=== PATIENT | female | born 1990 | race Caucasian/White ===

== ENCOUNTER 2018-05-15 16:07 | Emergency (ER) | payer SELFPAY ==
[2018-05-15 16:14] VITALS: BP 145/94
--- NOTE | 2018-05-15 16:25 | ER Document Report ---
ED Medical Screen (RME) - General Chief Complaint: Psych Problem Stated Complaint: PSYCH EVAL Time Seen by Provider: 05/15/18 16:17 Notes: 27 years old female brought in by mother claiming that she has run out of her psych medications because they were moving back and forth from here to [place]. Requesting me to refill clonazepam, lithium, Thorazine. Currently not exhibiting any psychotic symptoms. Denies any suicidal or homicidal ideation. TRAVEL OUTSIDE OF THE [place] IN LAST 30 DAYS: No - Related Data Allergies/Adverse Reactions: aripiprazole [From Abilify] Allergy (Verified 05/15/18 16:13) benztropine [From Cogentin] Allergy (Verified 05/15/18 16:14) haloperidol [From Haldol] Allergy (Verified 05/15/18 16:14) hydroxyzine [From Vistaril] Allergy (Verified 05/15/18 16:13) olanzapine [From Zyprexa] Allergy (Verified 05/15/18 16:13) quetiapine [From Seroquel] Allergy (Verified 05/15/18 16:13) latex Adverse Reaction (Verified 05/15/18 16:08) Pruritis Past Medical History Psychiatric Medical History: Reports: Hx Anxiety, Hx Bipolar Disorder, Hx Depression - Immunizations Hx Diphtheria, Pertussis, Tetanus Vaccination: Yes Physical Exam - Vital signs Vitals: Temp Pulse Resp BP Pulse Ox 98.7 F 102 H 18 145/94 H 100 05/15/18 16:12 05/15/18 16:12 05/15/18 16:12 05/15/18 16:12 05/15/18 16:12 Course - Vital Signs Vital signs: Temp Pulse Resp BP Pulse Ox 98.7 F 102 H 18 145/94 H 100 05/15/18 16:12 05/15/18 16:12 05/15/18 16:12 05/15/18 16:12 05/15/18 16:12
--- NOTE | 2018-05-15 17:52 | ER Document Report ---
ED Psych Disorder / Suicide - General Chief Complaint: Psych Problem Stated Complaint: PSYCH EVAL Time Seen by Provider: 05/15/18 16:17 Notes: Patient is here for medication refills and referral to a local psychiatrist [place]. She has a diagnosis of schizoaffective disorder and bipolar disorder. Has been taking multiple medications, her primary psychiatric ones are lithium 300 mg 3 times a day, Thorazine 200 mg 4 times a day, and clonazepam 1 mg 3 times a day. She is here with her mother. Mother indicates that the patient has an appointment to be seen by a primary care physician in the community next Friday, the . That is 5 days from now. Patient is not expressing any suicidal thoughts or thoughts of harming herself or anyone else. She does have problems with panic attacks and PTSD. Patient is here after the time for departure for the mental health workers and therefore there is no mental health assessment available, except for my assessment. Patient is apparently stable and not a risk of danger to herself or others. I have advised the patient and her mother that I do not write long- term prescriptions for any medications, in particular psychiatric medications. I told them that I would write her a prescription for the 3 primary medications that she needs for the next 5 days to last her until she has that appointment on the . They seem to be agreeable with that plan. I did tell them that there will be mental health personnel on duty in the emergency department every morning wish to return to be assessed more fully or to get any further assistance referral for a local therapist. They seem to be agreeable with this plan. TRAVEL OUTSIDE OF THE [place] IN LAST 30 DAYS: No - Related Data Allergies/Adverse Reactions: aripiprazole [From Abilify] Allergy (Verified 05/15/18 16:13) benztropine [From Cogentin] Allergy (Verified 05/15/18 16:14) haloperidol [From Haldol] Allergy (Verified 05/15/18 16:14) hydroxyzine [From Vistaril] Allergy (Verified 05/15/18 16:13) olanzapine [From Zyprexa] Allergy (Verified 05/15/18 16:13) quetiapine [From Seroquel] Allergy (Verified 05/15/18 16:13) latex Adverse Reaction (Verified 05/15/18 16:08) Pruritis Past Medical History - Social History Smoking Status: Current Every Day Smoker Chew tobacco use (# tins/day): No Frequency of alcohol use: None Drug Abuse: None Family History: Reviewed & Not Pertinent Patient has suicidal ideation: No Patient has homicidal ideation: No Psychiatric Medical History: Reports: Hx Anxiety, Hx Bipolar Disorder, Hx Depression, Hx Post Traumatic Stress Disorder, Hx Schizoaffective Disorder - Immunizations Hx Diphtheria, Pertussis, Tetanus Vaccination: Yes Review of Systems - Review of Systems Notes: REVIEW OF SYSTEMS: CONSTITUTIONAL : Denies fever. EENT: Denies eye, ear, nose or mouth or throat pain or other symptoms. CARDIOVASCULAR: Denies chest pain. RESPIRATORY: Denies cough, chest congestion, or shortness of breath. GASTROINTESTINAL: Denies abdominal pain or nausea, vomiting, or diarrhea. GENITOURINARY: Denies difficulty or painful urinating, urinary frequency, blood in urine. MUSCULOSKELETAL: Denies back or neck pain. Denies joint pain or swelling. SKIN: Denies rash or skin lesions. NEUROLOGICAL: Denies LOC or altered mental status. Denies headache. Denies sensory loss or motor deficits. ALL OTHER SYSTEMS REVIEWED AND NEGATIVE. Physical Exam - Vital signs Vitals: Temp Pulse Resp BP Pulse Ox 98.7 F 102 H 18 145/94 H 100 05/15/18 16:12 05/15/18 16:12 05/15/18 16:12 05/15/18 16:12 05/15/18 16:12 Interpretation: Normal - Notes Notes: PHYSICAL EXAMINATION: GENERAL: Well-appearing, in no acute distress. Quiet and withdrawn. Cooperative. Does not appear depressed. HEAD: Atraumatic, normocephalic. EYES: Pupils equal round and reactive to light, extraocular movements intact. ENT: oropharynx clear without exudates. Moist mucous membranes. NECK: Normal range of motion, supple. LUNGS: Breath sounds clear and equal bilaterally. HEART: Regular rate and rhythm without murmurs. ABDOMEN: Soft, nontender. No guarding or rebound. No masses. BACK: No tenderness throughout entire back. EXTREMITIES: Normal range of motion without pain. NEUROLOGICAL: Normal speech, normal gait. Normal sensory, motor, and reflex exams. Awake, alert, and oriented x3. Cranial nerves normal. PSYCH: Quiet and somewhat withdrawn, but does not appear depressed and is not suicidal. SKIN: Warm, dry, no rashes. Course - Re-evaluation Re-evalutation: 05/15/18 19:55 Prescriptions were written for the patient's lithium, Thorazine, and clonazepam. They are going to defer getting any lab work done at this time and I do not think any is indicated. They were advised to return at any time during the daytime hours for more mental health assessment and assistance. Return at any time for emergency evaluation. - Vital Signs Vital signs: Temp Pulse Resp BP Pulse Ox 98.7 F 102 H 18 145/94 H 100 05/15/18 16:12 05/15/18 16:12 05/15/18 16:12 05/15/18 16:12 05/15/18 16:12 Discharge - Discharge Clinical Impression: Bipolar 1 disorder, Schizoaffective disorder, unspecified condition, Anxiety Condition: Stable Disposition: HOME, SELF-CARE Additional Instructions: Bipolar Disorder Bipolar disorder is also called manic-depressive disorder. Depression alternates with brain hyperactivity called carloz. Each phase lasts from several days to a few weeks. We don't know exactly what causes bipolar disorder , but it's treatable. During the "manic phase," you may feel elated and energetic. You may have racing thoughts, rapid speech, increased activity, and grandiose ideas. During this time, you may not realize how poor your judgement is. Inappropriate spending, drug abuse, excessive alcohol use, marriage problems, and irresponsible sexual behavior are common during the manic phase. During the "depressive phase," you might feel depressed, guilty, worthless , fatigued, and unable to concentrate. You might have thoughts of suicide. Good treatments are available for bipolar disorder. Chassell is a classic drug for bipolar disorder, and is still often useful. If the manic phase is very mild, an antidepressant alone can be prescribed. If the manic phase is very severe, an antipsychotic medicine (such as Haldol) may be needed. The treatment must be matched to your symptoms, so it's important to work closely with your psychiatric care provider. Contact your physician, the hospital emergency center, crisis line, or your counsellor if you are losing control or having self-destructive thoughts. Schizophrenia Schizophrenia is a chemical disorder that affects how the brain functions. The exact cause is unknown, but it tends to run in families. It is NOT caused by emotional trauma. Schizophrenia causes disordered thinking, including unusual beliefs and inability to "process" happenings around the patient. Patients with schizophrenia benefit greatly from medicine. These medicines are called antipsychotics. Never stop the medicine without the doctor 's approval. Counselling may help the patient deal with his disease. Schizophrenics require a very ordered environment. Stresses and sudden changes may bring out symptoms. Drugs and alcohol abuse may become problems. Contact the counsellor or crisis line if there are thoughts of suicide or of harming others, or if you become aware of unusual thoughts or beliefs Anxiety The physician feels that some of your health problems are being caused by anxiety. Anxiety affects your health in many ways. Anxiety alone can cause palpitations, sweats, chest pains, abdominal pains, shortness of breath, and headaches. It contributes to ulcer disease, high blood pressure, irritable bowel syndrome, and has been shown to cause flare-ups of many other diseases. Anxiety is not a simple disorder to treat. If the anxiety is due to recent life stresses, you may simply need time to "work through" the changes. If the anxiety is due to an underlying unhappiness with yourself or due to psychiatric disturbance, professional help will be needed. Your physician can refer you for further help if needed. Anti-anxiety medication is occasionally given if the stress is acute or if you are having trouble sleeping. Chronic or frequent use of these medications is not a good idea because the body becomes reliant on it, preventing you from dealing with life's normal stresses. FOLLOW-UP CARE: If you have been referred to a physician for follow-up care, call the physician s office for an appointment as you were instructed or within the next two days. If you experience worsening or a significant change in your symptoms, notify the physician immediately or return to the Emergency Department at any time for re-evaluation. Prescriptions: Chlorpromazine HCl [Chlorpromazine HCL 200 mg Tablet] 1 tab PO QID #20 tab Clonazepam 1 mg PO TID #15 tablet Chassell Carbonate 300 mg PO TID #15 tablet
== END 2018-05-15 18:00 | disposition home or self-care (01) ==
LOC: ER 16:07
DX: F41.9 Anxiety disorder, unspecified (principal); F25.0 Schizoaffective disorder, bipolar type; F17.210 Nicotine dependence, cigarettes, uncomplicated; Z91.040 Latex allergy status
CPT/HCPCS: 99283

== ENCOUNTER 2018-07-07 16:29 | Emergency (ER) | payer SELFPAY | END 2018-07-07 17:34 | disposition left against medical advice (07) | LOC: ER 16:29 | DX: Z53.21 Procedure and treatment not carried out due to patient leaving prior to being seen by health care provider (principal) ==

== ENCOUNTER 2018-07-08 14:06 | Emergency (ER) | payer SELFPAY ==
[2018-07-08 14:14] VITALS: BP 132/92
--- NOTE | 2018-07-08 15:17 | ER Document Report ---
ED Medical Screen (RME) - General Chief Complaint: Medication Refill Stated Complaint: MEDICATION REFILL Time Seen by Provider: 07/08/18 15:05 Notes: Patient is a 28-year-old female, with bipolar disorder, schizophrenia that presents to the emergency department for chief complaint of psychiatric evaluation and medication refills. Patient history mainly provided with the patient's mother, she has had psychiatric evaluation [facility], but they apparently were not prescribe her her medications, she was on Klonopin, and there was according to the patient's mother confusion between her twin sister's prescriptions, but they refused to prescribe her other medications as well, they have been trying to contact other places to have her evaluated to get her on her medications, which she was previously on lithium, Cogentin, and Haldol, but she has had multiple adverse reactions from several medications including Thorazine, that apparently caused splenomegaly, she is currently out of the medications, but has been taking Haldol and Cogentin that she had leftover, which seemingly has been stabilizing her mood, but she would be running out of the soon she has been taking it for approximately 3 weeks. Current suicidal or homicidal ideation ROS: Other than noted above, the 12 point review of systems was reviewed with the patient and were negative, all pertinent findings are included in the HPI. PHYSICAL EXAMINATION: Vital signs reviewed. GENERAL: Well-appearing, well-nourished and in no acute distress. HEAD: Atraumatic, normocephalic. EYES: Pupils equal round extraocular movements intact, conjunctiva are normal. ENT: Nares patent NECK: Normal range of motion CV: Heart regular rate and rhythm LUNGS: No respiratory distress Musculoskeletal: Normal range of motion NEUROLOGICAL: Normal speech PSYCH: Flat affect MDM: Patient seen and examined for rapid initial assessment. Vital signs reviewed. A comprehensive ED assessment and evaluation of the patient, analysis of test results and completion of the medical decision making process will be conducted by additional ED providers. *Note is created using voice recognition software and may contain spelling, syntax or grammatical errors. TRAVEL OUTSIDE OF THE [place] IN LAST 30 DAYS: No - Related Data Allergies/Adverse Reactions: aripiprazole [From Abilify] Allergy (Verified 05/15/18 16:13) benztropine [From Cogentin] Allergy (Verified 05/15/18 16:14) haloperidol [From Haldol] Allergy (Verified 05/15/18 16:14) hydroxyzine [From Vistaril] Allergy (Verified 05/15/18 16:13) olanzapine [From Zyprexa] Allergy (Verified 05/15/18 16:13) quetiapine [From Seroquel] Allergy (Verified 05/15/18 16:13) latex Adverse Reaction (Verified 05/15/18 16:08) Pruritis Past Medical History Renal/ Medical History: Denies: Hx Peritoneal Dialysis Psychiatric Medical History: Reports: Hx Anxiety, Hx Bipolar Disorder, Hx Depression, Hx Post Traumatic Stress Disorder, Hx Schizoaffective Disorder, Hx Schizophrenia - schizoaffective, ptsd - Immunizations Hx Diphtheria, Pertussis, Tetanus Vaccination: Yes Physical Exam - Vital signs Vitals: Temp Pulse Resp BP Pulse Ox 99.0 F 81 20 132/92 H 99 07/08/18 14:11 07/08/18 14:11 07/08/18 14:11 07/08/18 14:11 07/08/18 14:11 Course - Vital Signs Vital signs: Temp Pulse Resp BP Pulse Ox 99.0 F 81 20 132/92 H 99 07/08/18 14:11 07/08/18 14:11 07/08/18 14:11 07/08/18 14:11 07/08/18 14:11
[2018-07-08 16:05] LABS: ABSOLUTE MONOCYTES (AUTO) 0.3 10^3/uL (0.1-1.4); ABSOLUTE NEUT (AUTO) 2.5 10^3/uL (1.7-8.2); BASOPHILS % (AUTO) 0.1 % (0-2); HEMATOCRIT 42.1 % (36.0-47.0); HEMOGLOBIN 14.5 g/dL (12.0-15.5); LYMPHOCYTES % (AUTO) 27.1 % (13-45); MEAN CORPUSCULAR HEMOGLOBIN 29.7 pg (27.0-33.4); MEAN CORPUSCULAR HGB CONC 34.4 g/dL (32.0-36.0); MEAN CORPUSCULAR VOLUME 86 fl (80-97); MONOCYTES % (AUTO) 6.7 % (3-13); PLATELET COUNT 167 10^3/uL (150-450); RED BLOOD COUNT 4.89 10^6/uL (3.72-5.28); RED CELL DISTRIBUTION WIDTH 12.4 % (11.5-14.0); SEGMENTED NEUTROPHILS % (AUTO) 66.1 % (42-78); TOTAL CELLS COUNTED % (AUTO) 100 %; WHITE BLOOD COUNT 3.8 10^3/uL (4.0-10.5)
[2018-07-08 16:12] LABS: APPEARANCE,URINE SLIGHTLY-CLOUDY; BILIRUBIN,URINE NEGATIVE (NEGATIVE); COLOR,URINE YELLOW; GLUCOSE, URINE NEGATIVE (NEGATIVE); KETONES,URINE NEGATIVE (NEGATIVE); LEUKOCYTE ESTERASE,URINE LARGE (NEGATIVE); NITRITE,URINE NEGATIVE (NEGATIVE); PROTEIN,URINE NEGATIVE (NEGATIVE); URINE SPECIFIC GRAVITY 1.011; UROBILINOGEN,URINE NEGATIVE mg/dL (<2.0)
[2018-07-08 16:26] LABS: URINE AMPHETAMINES SCREEN NEGATIVE; URINE BARBITURATES SCREEN NEGATIVE; URINE BENZODIAZEPINES SCREEN NEGATIVE; URINE COCAINE SCREEN NEGATIVE; URINE MARIJUANA (THC) SCREEN NEGATIVE; URINE METHADONE SCREEN NEGATIVE; URINE PHENCYCLIDINE SCREEN NEGATIVE
[2018-07-08 16:31] LABS: ALANINE AMINOTRANSFERASE 18 U/L (9-52); ALBUMIN 4.8 g/dL (3.5-5.0); ALKALINE PHOSPHATASE 49 U/L (38-126); ANION GAP 12 (5-19); ASPARTATE AMINO TRANSFERASE 22 U/L (14-36); BILIRUBIN,DIRECT 0.2 mg/dL (0.0-0.4); BILIRUBIN,TOTAL 0.5 mg/dL (0.2-1.3); BLOOD UREA NITROGEN 11 mg/dL (7-20); CALCIUM 10.1 mg/dL (8.4-10.2); CARBON DIOXIDE 27 mmol/L (22-30); CHLORIDE 106 mmol/L (98-107); GLUCOSE 81 mg/dL (75-110); POTASSIUM 4.5 mmol/L (3.6-5.0); TOTAL PROTEIN 7.9 g/dL (6.3-8.2)
[2018-07-08 16:34] LABS: ACETAMINOPHEN < 10 ug/mL (10-30); ALCOHOL < 10 mg/dL (NONE DETECTED); LITHIUM < 0.2 mEq/L (0.6-1.2); SALICYLATE < 1.0 mg/dL (2.0-20.0)
--- NOTE | 2018-07-08 19:51 | ER Document Report ---
ED Psych Disorder / Suicide - General Chief Complaint: Medication Refill Stated Complaint: MEDICATION REFILL Time Seen by Provider: 07/08/18 15:05 Notes: Patient with a history of bipolar disorder, and schizophrenia requesting medication refills. She is here with her mother. I have seen this patient and her mother on a previous visit when they were here expecting us to write for her chronic psychiatric medications. Currently, she is out of her medications. TRAVEL OUTSIDE OF THE [place] IN LAST 30 DAYS: No - Related Data Allergies/Adverse Reactions: aripiprazole [From Abilify] Allergy (Verified 05/15/18 16:13) benztropine [From Cogentin] Allergy (Verified 05/15/18 16:14) haloperidol [From Haldol] Allergy (Verified 05/15/18 16:14) hydroxyzine [From Vistaril] Allergy (Verified 05/15/18 16:13) olanzapine [From Zyprexa] Allergy (Verified 05/15/18 16:13) quetiapine [From Seroquel] Allergy (Verified 05/15/18 16:13) latex Adverse Reaction (Verified 05/15/18 16:08) Pruritis Past Medical History - Social History Smoking Status: Current Every Day Smoker Frequency of alcohol use: None Drug Abuse: None Family History: Reviewed & Not Pertinent Patient has suicidal ideation: No Patient has homicidal ideation: No Psychiatric Medical History: Reports: Hx Anxiety, Hx Bipolar Disorder, Hx Depression, Hx Post Traumatic Stress Disorder, Hx Schizoaffective Disorder, Hx Schizophrenia - schizoaffective, ptsd - Immunizations Hx Diphtheria, Pertussis, Tetanus Vaccination: Yes Review of Systems - Review of Systems Notes: CONSTITUTIONAL : Denies fever. CARDIOVASCULAR: Denies chest pain. RESPIRATORY: Denies cough, chest congestion, or shortness of breath. GASTROINTESTINAL: Denies abdominal pain or nausea, vomiting, or diarrhea. GENITOURINARY: Denies difficulty or painful urinating, urinary frequency, blood in urine. Physical Exam - Vital signs Vitals: Temp Pulse Resp BP Pulse Ox 99.0 F 81 20 132/92 H 99 07/08/18 14:11 07/08/18 14:11 07/08/18 14:11 07/08/18 14:11 07/08/18 14:11 Interpretation: Normal Notes: PHYSICAL EXAMINATION: GENERAL: Well-appearing, no acute distress. HEAD: Atraumatic, normocephalic. NECK: Normal range of motion, supple. LUNGS: Breath sounds clear and equal bilaterally. HEART: Regular rate and rhythm without murmurs heard. ABDOMEN: Soft, nontender. No guarding or rebound or masses felt. Course - Re-evaluation Re-evalutation: 07/08/18 19:50 Patient and mother were observed to leave the emergency department without being signed out. - Vital Signs Vital signs: Temp Pulse Resp BP Pulse Ox 99.0 F 81 20 132/92 H 99 07/08/18 14:11 07/08/18 14:11 07/08/18 14:11 07/08/18 14:11 07/08/18 14:11 - Laboratory Result Diagrams: 07/08/18 15:47 07/08/18 15:47 Laboratory results interpreted by me: 07/08/18 07/08/18 07/08/18 15:47 15:47 15:47 WBC 3.8 L Ur Leukocyte Esterase LARGE H Salicylates < 1.0 L Acetaminophen < 10 L [place] < 0.2 L Discharge - Discharge Clinical Impression: Schizoaffective disorder, chronic condition Condition: Stable Disposition: ELOPED
--- NOTE | 2018-07-08 20:55 | EKG REPORT ---
SEVERITY:- NORMAL ECG - SINUS RHYTHM : Confirmed by: Elva Antonio MD 08-Jul-2018 20:54:32
--- NOTE | 2018-07-09 11:26 | PSYCHOLOGICAL NOTE ---
Psych Note - Psych Note Date seen by psych provider: 07/08/18 Time seen by psych provider: 16:00 Psych Note: Reason for Consult: medication refills Consent permissions: patient's mother, Apple, at bedside per patient's request Patient is a 28-year-old female, with bipolar disorder, schizophrenia that presents to the emergency department for chief complaint of psychiatric evaluation and medication refills. Patient's mother does most of the talking however patient does disclose some information such as that she had been taking lithium Thorazine and clonazepam. She reports that she has been out of lithium for 3 weeks and really needs the medication. She reports that she does not want to continue taking the Thorazine as it upsets her stomach and has recently restarted an old prescription of Haldol that she had laying around and reports that she would like to be put on that. Patient's mother discloses that they have been trying to get the patient's medication for a while now reporting that she was going to [facility] however they refused to write prescriptions for the patient anymore because they "mixed up" the patient and her twin sister. She denies the patient is allergic to Haldol (hospital chart indicates patient has a verified allergy to Haldol from April 2018). She reports that they fish bait picker their medications from [facility] in [place] and the patient was inpatient psychiatric treatment in December 2017 for 10 days at [facility] in [facility]. She reports that the patient currently is seeing a therapist at [facility] by the name of Bonnie. She disclosed that she is contacted many people on the resource list both in [facility] and [facility] and are repeatedly told they are unable to help (i.e. integrated family services report 8 weeks before a psychiatrist appointment, [facility] does not do walk-ins unless established patient , [facility] would not assist, [facility] does not take Medicaid or Medicare). She disclosed that she has not tried [facility] yet but is just frustrated that she is having such difficulty getting the medications. She denies the patient has substance abuse history, stating the twin sister (no present) has a history of substance abuse and severe trauma. She disclosed the patient is diagnosis with " bipolar disorder and schizophrenia." Behavior health team contacted [facility] of [place]. Patient has not been provided any prescriptions for clonazepam or Haldol. They confirm the patient has received lithium and Thorazine with prescriptions of lithium on 06/01 for 30-day supply and Thorazine 06/13/2018 for a 5-day supply and 2017 for a 10-day supply. Patient is alert and orientated to person, place, time and circumstance. Mood is euthymic with congruent affect as evidenced by smiling and engaging with clinician. Patient denies suicidal and homicidal ideation. Delusions are absent behaviors congruent with an intact reality based presentation i.e. organized and linear thought process. Eye contact was well-maintained. Conversational speech is within normal rate, tone and prosody. Intellectual abilities appear to be average range. Attention and concentration are good. Insight, judgment, impulse control are fair. Chart review indicates patient has never been seen by the behavioral health team No medication recommendations at this time Diagnosis Deferred Patient's mother and patient report schizoaffective daughter; bipolar type; however, there are no indications the patient is suffering from any current symptoms and has been off medications for reported 3 weeks. There is also concern (reported by patient and family) the patient and her twin sister have charts that have been "mixed up." At this time, it be more appropriate for the patient to have a full neuropsychological testing with an outpatient provider to determine true diagnosis and medication needs. Impression\\plan: Patient is cleared from acute psychiatric services. Patient reports that she is been off lithium for 3 weeks. This medication needs to have close follow-up with an outpatient mental health provider and currently the patient is having difficulty obtaining that. It was recommended the patient follow-up with [facility]. At this time the patient is not demonstrating any hypomanic or manic behaviors; behaviors are congruent with an intact reality based presentation i.e. organized linear thought process. At this time it would be more appropriate for the patient to obtain medications from a outpatient mental health provider that can follow her once she does obtain a provider. Behavior health team explained that patient may need to wait for integrated family services appointments or reestablish at another facility. It is currently unclear why [facility] will not prescribe however the patient's mother explained that there was some "mixup" between the patient and her sister. This supports the importance of the patient re- obtaining outpatient mental health services that can follow her plan of care. Patient is not demonstrating any behaviors indicating the need for acute services. Griffin was consulted and the care management this patient; attending physicians in agreement with recommendations and disposition.
== END 2018-07-08 17:55 | disposition left against medical advice (07) ==
LOC: ER 14:06
DX: Z76.0 Encounter for issue of repeat prescription (principal); F25.8 Other schizoaffective disorders
CPT/HCPCS: 36415; 80053; 80178; 80307; 81001; 84703; 85025; 93005; 93010; 99281

== ENCOUNTER 2018-09-16 14:01 | Emergency (ER) | payer SELFPAY ==
--- NOTE | 2018-09-16 14:35 | ER Document Report ---
ED Medical Screen (RME) - General Chief Complaint: Psych Problem Stated Complaint: PSYCH EVAL Time Seen by Provider: 09/16/18 14:22 Mode of Arrival: Ambulatory Information source: Patient, Relative, [facility] Records Notes: 28-year-old female with history of bipolar disorder, panic disorder, PTSD presents with her mother and sister who are concerned for violent behavior, verbal threats, homicidal ideation. Mother reports that the patient is currently in therapy but over the last 48 hours has had a change in her behavior. Mother reports that the only medications that have ever worked for her daughter with a combination of lithium, Haldol, Cogentin, Klonopin. Patient denies suicidal ideation. Patient did scream out during getting her vitals taking that "I want a rape kit". But will not elaborate with me. I have greeted and performed a rapid initial assessment of this patient. A comprehensive ED assessment and evaluation of the patient, analysis of test results and completion of medical decision making process we will be contacted by additional ED providers. PHYSICAL EXAMINATION: Vital signs reviewed GENERAL: Uncooperative LUNGS: No respiratory distress Musculoskeletal: Normal range of motion NEUROLOGICAL: Normal speech, normal gait. PSYCH: Tearful, admits to homicidal ideation SKIN: Warm, Dry, normal turgor, no rashes or lesions noted. TRAVEL OUTSIDE OF THE [place] IN LAST 30 DAYS: No - HPI Onset: Other Quality of pain: No pain Severity: None Pain Level: Denies Associated Symptoms: None Exacerbated by: Denies Relieved by: Denies Similar symptoms previously: Yes Recently seen / treated by doctor: Yes - Related Data Smoking: Cigarettes Frequency of alcohol use: None Drug Abuse: None Allergies/Adverse Reactions: aripiprazole [From Abilify] Allergy (Verified 05/15/18 16:13) chlorpromazine [From Thorazine] Allergy (Verified 09/16/18 14:05) hydroxyzine [From Vistaril] Allergy (Verified 05/15/18 16:13) olanzapine [From Zyprexa] Allergy (Verified 05/15/18 16:13) quetiapine [From Seroquel] Allergy (Verified 05/15/18 16:13) latex Adverse Reaction (Verified 05/15/18 16:08) Pruritis Past Medical History Renal/ Medical History: Denies: Hx Peritoneal Dialysis Psychiatric Medical History: Reports: Hx Anxiety, Hx Bipolar Disorder, Hx Depression, Hx Post Traumatic Stress Disorder, Hx Schizoaffective Disorder, Hx Schizophrenia - schizoaffective, ptsd - Immunizations Hx Diphtheria, Pertussis, Tetanus Vaccination: Yes Physical Exam - Vital signs Vitals: Temp Pulse Resp BP Pulse Ox 98.6 F 100 16 135/94 H 95 09/16/18 14:09 09/16/18 14:09 09/16/18 14:09 09/16/18 14:09 09/16/18 14:09 Course - Vital Signs Vital signs: Temp Pulse Resp BP Pulse Ox 98.6 F 100 16 135/94 H 95 09/16/18 14:09 09/16/18 14:09 09/16/18 14:09 09/16/18 14:09 09/16/18 14:09
[2018-09-16 15:14] LABS: ABSOLUTE LYMPHOCYTES (AUTO) 1.1 10^3/uL (0.5-4.7); ABSOLUTE MONOCYTES (AUTO) 0.4 10^3/uL (0.1-1.4); ABSOLUTE NEUT (AUTO) 6.4 10^3/uL (1.7-8.2); BASOPHILS % (AUTO) 0.1 % (0-2); HEMATOCRIT 43.4 % (36.0-47.0); HEMOGLOBIN 15.1 g/dL (12.0-15.5); LYMPHOCYTES % (AUTO) 14.1 % (13-45); MEAN CORPUSCULAR HEMOGLOBIN 29.9 pg (27.0-33.4); MEAN CORPUSCULAR HGB CONC 34.8 g/dL (32.0-36.0); MEAN CORPUSCULAR VOLUME 86 fl (80-97); MONOCYTES % (AUTO) 5.4 % (3-13); PLATELET COUNT 184 10^3/uL (150-450); RED BLOOD COUNT 5.06 10^6/uL (3.72-5.28); RED CELL DISTRIBUTION WIDTH 13.3 % (11.5-14.0); SEGMENTED NEUTROPHILS % (AUTO) 80.4 % (42-78); TOTAL CELLS COUNTED % (AUTO) 100 %
[2018-09-16 15:26] LABS: APPEARANCE,URINE CLOUDY; BILIRUBIN,URINE NEGATIVE (NEGATIVE); COLOR,URINE YELLOW; GLUCOSE, URINE NEGATIVE (NEGATIVE); KETONES,URINE NEGATIVE (NEGATIVE); LEUKOCYTE ESTERASE,URINE LARGE (NEGATIVE); NITRITE,URINE NEGATIVE (NEGATIVE); PROTEIN,URINE NEGATIVE (NEGATIVE); UROBILINOGEN,URINE NEGATIVE mg/dL (<2.0)
[2018-09-16 15:40] LABS: URINE AMPHETAMINES SCREEN NEGATIVE; URINE BARBITURATES SCREEN NEGATIVE; URINE BENZODIAZEPINES SCREEN NEGATIVE; URINE COCAINE SCREEN NEGATIVE; URINE MARIJUANA (THC) SCREEN UNCONFIRMED POSITIVE; URINE PHENCYCLIDINE SCREEN NEGATIVE
--- NOTE | 2018-09-16 15:40 | ER Document Report ---
ED General - General Chief Complaint: Psych Problem Stated Complaint: PSYCH EVAL Time Seen by Provider: 09/16/18 14:22 Mode of Arrival: Ambulatory Information source: Patient, Parent, Relative, [facility] Records Cannot obtain history due to: Mentally challenged, Uncooperative Notes: 28-year-old female with history of bipolar disorder, panic disorder, PTSD presents with her mother and sister who are concerned for violent behavior, verbal threats, homicidal ideation. Mother reports that the patient is currently in therapy but over the last 48 hours has had a change in her behavior. Mother reports that the only medications that have ever worked for her daughter with a combination of lithium, Haldol, Cogentin, Klonopin. Patient denies suicidal ideation. Patient did scream out during getting her vitals taking that "I want a rape kit". But will not elaborate with me. TRAVEL OUTSIDE OF THE [place] IN LAST 30 DAYS: No - HPI Onset: Yesterday Onset/Duration: Gradual Quality of pain: No pain Severity: None Pain Level: Denies Associated symptoms: None Exacerbated by: Denies Relieved by: Denies Similar symptoms previously: Yes Recently seen / treated by doctor: Yes - Related Data Allergies/Adverse Reactions: aripiprazole [From Abilify] Allergy (Verified 09/16/18 15:27) chlorpromazine [From Thorazine] Allergy (Verified 09/16/18 15:27) hydroxyzine [From Vistaril] Allergy (Verified 09/16/18 15:27) olanzapine [From Zyprexa] Allergy (Verified 09/16/18 15:27) quetiapine [From Seroquel] Allergy (Verified 09/16/18 15:27) latex Adverse Reaction (Verified 09/16/18 15:27) Pruritis Past Medical History - General Information source: Patient, Relative, [facility] Records - Social History Smoking Status: Current Every Day Smoker Frequency of alcohol use: None Drug Abuse: None Lives with: Family Family History: Reviewed & Not Pertinent Patient has suicidal ideation: No Patient has homicidal ideation: Yes Renal/ Medical History: Denies: Hx Peritoneal Dialysis Psychiatric Medical History: Reports: Hx Anxiety, Hx Bipolar Disorder, Hx Depression, Hx Post Traumatic Stress Disorder, Hx Schizoaffective Disorder, Hx Schizophrenia - schizoaffective, ptsd - Immunizations Hx Diphtheria, Pertussis, Tetanus Vaccination: Yes Review of Systems - Review of Systems Notes: REVIEW OF SYSTEMS: CONSTITUTIONAL : Denies fever, chills, or sweats. Denies recent illness. Denies weight loss, recent hospitalizations. EENT: Denies visual changes, eye pain. Denies sore throat, oral lesions, difficulty swallowing. CARDIOVASCULAR: Denies chest pain. Denies palpitations. Denies lower extremity edema. RESPIRATORY: Denies cough. Denies shortness of breath, wheezing. GASTROINTESTINAL: Denies abdominal pain or distention. Denies nausea, vomiting, or diarrhea. Denies blood in vomitus, stools, or per rectum. Denies black, tarry stools. Denies constipation. GENITOURINARY: Denies difficulty urinating, painful urination, frequency, blood in urine, or vaginal discharge. MUSCULOSKELETAL: Denies back or neck pain or stiffness. Denies joint pain or swelling. SKIN: Denies rash, lesions or sores. HEMATOLOGIC : Denies easy bruising or bleeding. LYMPHATIC: Denies swollen glands. NEUROLOGICAL: Denies confusion or altered mental status. Denies loss of consciousness. Denies dizziness or lightheadedness. Denies headache. Denies weakness or paralysis. Denies problems difficulty with ambulation, slurred speech. Denies sensory loss, numbness, or tingling. Denies seizures. PSYCHIATRIC: Denies suicidal ideation. Admits to homicidal ideation, depression, anxiety Physical Exam - Vital signs Vitals: Temp Pulse Resp BP Pulse Ox 98.6 F 100 16 135/94 H 95 09/16/18 14:09 09/16/18 14:09 09/16/18 14:09 09/16/18 14:09/16/18 14:09 - Notes Notes: PHYSICAL EXAMINATION: GENERAL: Well-appearing, well-nourished and in no acute distress. HEAD: Atraumatic, normocephalic. EYES: Pupils equal round and reactive to light, extraocular movements intact, conjunctiva are normal. ENT: Nares patent, oropharynx clear without exudates. Moist mucous membranes. NECK: Normal range of motion, supple without lymphadenopathy LUNGS: Breath sounds clear to auscultation bilaterally and equal. No wheezes rales or rhonchi. HEART: Regular rate and rhythm without murmurs ABDOMEN: Soft, nontender, nondistended abdomen. No guarding, no rebound. No masses appreciated. Female : deferred Musculoskeletal: Normal range of motion, no pitting or edema. No cyanosis. NEUROLOGICAL: Cranial nerves grossly intact. Normal speech, normal gait. Normal sensory, motor exams PSYCH: Tearful, uncooperative admits to thoughts of hurting others. SKIN: Warm, Dry, normal turgor, no rashes or lesions noted. Course - Re-evaluation Re-evalutation: Laboratory 09/16/18 09/16/18 09/16/18 14:55 14:55 14:55 WBC 8.0 RBC 5.06 Hgb 15.1 Hct 43.4 MCV 86 MCH 29.9 MCHC 34.8 RDW 13.3 Plt Count 184 Seg Neutrophils % 80.4 H Lymphocytes % 14.1 Monocytes % 5.4 Eosinophils % 0.0 Basophils % 0.1 Absolute Neutrophils 6.4 Absolute Lymphocytes 1.1 Absolute Monocytes 0.4 Absolute Eosinophils 0.0 Absolute Basophils 0.0 Sodium 142.5 Potassium 4.2 Chloride 108 H Carbon Dioxide 22 Anion Gap 13 BUN 15 Creatinine 0.76 Est GFR ( Amer) > 60 Est GFR (Non-Af Amer) > 60 Glucose 86 Calcium 9.9 Total Bilirubin 0.8 Direct Bilirubin 0.3 Neonat Total Bilirubin Not Reportable Neonat Direct Bilirubin Not Reportable Neonat Indirect Bili Not Reportable AST 32 ALT 18 Alkaline Phosphatase 52 Total Protein 7.9 Albumin 5.1 H Serum HCG, Qual NEGATIVE Urine Color Urine Appearance Urine pH Ur Specific [place] Urine Protein Urine Glucose (UA) Urine Ketones Urine Blood Urine Nitrite Urine Bilirubin Urine Urobilinogen Ur Leukocyte Esterase Urine WBC (Auto) Urine RBC (Auto) Squamous Epi Cells Auto Urine Mucus (Auto) Urine Ascorbic Acid Salicylates < 1.0 L Urine Opiates Screen Urine Methadone Screen Acetaminophen < 10 L Ur Barbiturates Screen Ur Phencyclidine Scrn Ur Amphetamines Screen U Benzodiazepines Scrn Urine Cocaine Screen U Marijuana (THC) Screen Serum Alcohol < 10 09/16/18 09/16/18 14:55 14:55 WBC RBC Hgb Hct MCV MCH MCHC RDW Plt Count Seg Neutrophils % Lymphocytes % Monocytes % Eosinophils % Basophils % Absolute Neutrophils Absolute Lymphocytes Absolute Monocytes Absolute Eosinophils Absolute Basophils Sodium Potassium Chloride Carbon Dioxide Anion Gap BUN Creatinine Est GFR ( Amer) Est GFR (Non-Af Amer) Glucose Calcium Total Bilirubin Direct Bilirubin Neonat Total Bilirubin Neonat Direct Bilirubin Neonat Indirect Bili AST ALT Alkaline Phosphatase Total Protein Albumin Serum HCG, Qual Urine Color YELLOW Urine Appearance CLOUDY Urine pH 6.0 Ur Specific [place] 1.020 Urine Protein NEGATIVE Urine Glucose (UA) NEGATIVE Urine Ketones NEGATIVE Urine Blood NEGATIVE Urine Nitrite NEGATIVE Urine Bilirubin NEGATIVE Urine Urobilinogen NEGATIVE Ur Leukocyte Esterase LARGE H Urine WBC (Auto) 53 Urine RBC (Auto) 3 Squamous Epi Cells Auto 6 Urine Mucus (Auto) RARE Urine Ascorbic Acid NEGATIVE Salicylates Urine Opiates Screen NEGATIVE Urine Methadone Screen NEGATIVE Acetaminophen Ur Barbiturates Screen NEGATIVE Ur Phencyclidine Scrn NEGATIVE Ur Amphetamines Screen NEGATIVE U Benzodiazepines Scrn NEGATIVE Urine Cocaine Screen NEGATIVE U Marijuana (THC) Screen UNCONFIRMED POSITIVE Serum Alcohol 09/16/18 15:40 28-year-old female with a history of bipolar disorder presents with her mother increasing violent behavior. Patient was evaluated by our psychiatry team, IVC petition was initiated. Significant findings include a urinary tract infection and marijuana on her drug screen. Patient did receive clonazepam for her anxiety. And Keflex for her UTI. Awaiting medication recommendations. Advised to start lithium 300 mg twice daily. Patient cleared for psychiatric evaluation. 09/16/18 16:14 09/16/18 17:05 09/16/18 20:11 - Vital Signs Vital signs: Temp Pulse Resp BP Pulse Ox 98.6 F 99 16 133/77 H 95 09/16/18 14:09 09/16/18 15:01 09/16/18 14:09 09/16/18 15:01 09/16/18 14:09 - Laboratory Result Diagrams: 09/16/18 14:55 09/16/18 14:55 Laboratory results interpreted by me: 09/16/18 09/16/18 09/16/18 14:55 14:55 14:55 Seg Neutrophils % 80.4 H Chloride 108 H Albumin 5.1 H Ur Leukocyte Esterase LARGE H Salicylates < 1.0 L Acetaminophen < 10 L Discharge - Discharge Clinical Impression: Homicidal ideation UTI (urinary tract infection) Qualifiers: Urinary tract infection type: site unspecified Hematuria presence: without h ematuria Qualified Code(s): N39.0 - Urinary tract infection, site not specified Condition: Good
[2018-09-16 15:48] LABS: URINE METHADONE SCREEN NEGATIVE
[2018-09-16 15:57] LABS: ALANINE AMINOTRANSFERASE 18 U/L (9-52); ALBUMIN 5.1 g/dL (3.5-5.0); ALKALINE PHOSPHATASE 52 U/L (38-126); ANION GAP 13 (5-19); ASPARTATE AMINO TRANSFERASE 32 U/L (14-36); BILIRUBIN,DIRECT 0.3 mg/dL (0.0-0.4); BILIRUBIN,TOTAL 0.8 mg/dL (0.2-1.3); BLOOD UREA NITROGEN 15 mg/dL (7-20); CALCIUM 9.9 mg/dL (8.4-10.2); CARBON DIOXIDE 22 mmol/L (22-30); CHLORIDE 108 mmol/L (98-107); GLUCOSE 86 mg/dL (75-110); POTASSIUM 4.2 mmol/L (3.6-5.0); SODIUM 142.5 mmol/L (137-145); TOTAL PROTEIN 7.9 g/dL (6.3-8.2)
[2018-09-16 16:10] LABS: ACETAMINOPHEN < 10 ug/mL (10-30); ALCOHOL < 10 mg/dL (NONE DETECTED); SALICYLATE < 1.0 mg/dL (2.0-20.0)
[2018-09-16] MEDS ORDERED: CEPHALEXIN 500 MG CAPSULE PO ONE (16:13)
[2018-09-16] MEDS ORDERED: CLONAZEPAM 1 MG TABLET PO ONE ×2 (17:02→21:59)
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
[2018-09-16] MEDS: LITHIUM CARBONATE 300 MG CAPSULE PO SCH ×2 (17:59→18:00)
--- NOTE | 2018-09-16 18:41 | EKG REPORT ---
SEVERITY:- NORMAL ECG - SINUS RHYTHM : Confirmed by: Oleksandr Oconnell MD 16-Sep-2018 18:40:14
[2018-09-16] MEDS ORDERED: LORAZEPAM 1 MG TABLET PO PRN (21:28)
[2018-09-17 08:37] VITALS: BP 120/65
[2018-09-17] MEDS: LITHIUM CARBONATE 300 MG CAPSULE PO SCH (09:10)
--- NOTE | 2018-09-17 09:49 | ER Document Report ---
Doctor's Note Notes: 09/17/18 09:49 Patient seen and examined. She complains of some anxiety this morning. Per nursing she was pacing waiting for her phone call. She seemed calm since then. She does complain of some abdominal pain which she admits is chronic. States she has had "liver problems". She states she is not hungry but is pleased to be back on her lithium. She is mildly tearful and flat in affect. Heart is regular rate and rhythm, lungs are clear to auscultation bilaterally. Abdomen is soft and diffusely tender, but nonsurgical on exam. We will continue lithium as per psychiatric recommendations and continue to look for placement.
[2018-09-17] MEDS ORDERED: CLONAZEPAM 1 MG TABLET PO ONE (14:51)
--- NOTE | 2018-09-17 15:04 | PSYCHOLOGICAL NOTE ---
Psych Note - Psych Note Date seen by psych provider: 09/17/18 Time seen by psych provider: 07:40 Psych Note: Reason for Consult: homicidal ideation 28-year-old female with history of bipolar disorder, panic disorder, PTSD presents with her mother and sister who are concerned for violent behavior, verbal threats, homicidal ideation. Check in with Patient Patient presents irritable today with poor attention and concentration. Patient is unable/unwilling to conduct a linear conversation as she continues to repeat herself about her anxiety, needing medication, and being here voluntary. Clinician is unable to redirect the patient in conversation. Patient continues to demonstrate a lag in response times during conversation. Medication recommendations per [facility]'s contracted psychiatrist Dr. Diana HOWELL are as follows [place] 300 mg twice daily Schizoaffective bipolar type per history provided by patient and family Impression\\plan: Patient is recommended for IVC. Patient presents with concerns of aggressive behavior. Patient presents with difficulty in thought processes ie delay in conversational speech and word searching. Patient also appears to be possibly responding to internal stimuli with frequent darting of eyes around the room and appearing scared. Patient has been off medications for multiple months because of difficulties in obtaining an outpatient mental health provider due to a "mix up" with her twin sister's medications. She has been calm and and compliant. Patient was accepted to [place]; transportation will occur today. Dr. Moya was consulted and care management this patient; attending physicians in agreement with recommendations and disposition per
== END 2018-09-17 14:45 ==
LOC: ER 14:01
DX: R45.850 Homicidal ideations (principal); N39.0 Urinary tract infection, site not specified; F25.0 Schizoaffective disorder, bipolar type; F41.9 Anxiety disorder, unspecified; F17.200 Nicotine dependence, unspecified, uncomplicated; Z88.8 Allergy status to other drugs, medicaments and biological substances
CPT/HCPCS: 93005; 99285; 36415; 80307 ×4; 84703; 85025; 80053; 81001; 93010; J3490 ×2

== ENCOUNTER 2019-01-29 04:27 | Emergency (ER) | payer MEDICAID ==
[2019-01-29] MEDS ORDERED: NORMAL SALINE 1000 ML 1,000 ML IV ONE (05:06)
[2019-01-29] MEDS ORDERED: LORAZEPAM INJ 2 MG/1 ML VIAL IV ONE (05:06)
[2019-01-29] MEDS ORDERED: MORPHINE SULFATE 10 MG/ML INJ IV ONE ×2 (05:06→07:08)
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
[2019-01-29] MEDS ORDERED: ONDANSETRON HCL INJ/PF 4 MG/2 ML SDV IV ONE (05:36)
[2019-01-29 07:25] VITALS: BP 112/66
== END 2019-01-29 07:54 | disposition short-term general hospital (02) ==
LOC: ER 04:27
DX: T23.241A Burn of second degree of multiple right fingers (nail), including thumb, initial encounter (principal); T23.251A Burn of second degree of right palm, initial encounter; T23.261A Burn of second degree of back of right hand, initial encounter; X08.8XXA Exposure to other specified smoke, fire and flames, initial encounter; Y93.89 Activity, other specified; Z88.8 Allergy status to other drugs, medicaments and biological substances
CPT/HCPCS: 99285; 96361; 96374; 96375; J2270; J2060; J2405; J7030

== ENCOUNTER 2019-06-15 17:21 | Emergency (ER) | payer MEDICAID ==
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
[2019-06-15 18:47] LABS: AMORPHOUS SEDIMENT,URINE TRACE /HPF; APPEARANCE,URINE SLIGHTLY-CLOUDY; BILIRUBIN,URINE NEGATIVE (NEGATIVE); COLOR,URINE YELLOW; GLUCOSE, URINE NEGATIVE (NEGATIVE); KETONES,URINE NEGATIVE (NEGATIVE); LEUKOCYTE ESTERASE,URINE NEGATIVE (NEGATIVE); NITRITE,URINE NEGATIVE (NEGATIVE); PROTEIN,URINE NEGATIVE (NEGATIVE); URINE SPECIFIC GRAVITY 1.015
[2019-06-15 18:50] LABS: URINE AMPHETAMINES SCREEN NEGATIVE; URINE BARBITURATES SCREEN NEGATIVE; URINE BENZODIAZEPINES SCREEN NEGATIVE; URINE COCAINE SCREEN NEGATIVE; URINE MARIJUANA (THC) SCREEN NEGATIVE; URINE METHADONE SCREEN NEGATIVE; URINE PHENCYCLIDINE SCREEN NEGATIVE
--- NOTE | 2019-06-15 18:58 | ER Document Report ---
ED General - General Chief Complaint: Psych Problem Stated Complaint: PSYCH EVAL Time Seen by Provider: 06/15/19 17:42 Primary Care Provider: JORGE MONTEIRO DO [Primary Care Provider] - Follow up as needed Mode of Arrival: Ambulatory TRAVEL OUTSIDE OF THE [place] IN LAST 30 DAYS: No - HPI Notes: Patient is a 29-year-old female with a history of bipolar disorder, panic disorder, PTSD who presents to the emergency department with mother and sister with concern of hostility, aggression, punching myers, and visual/auditory hallucinations. According to the review when at triage mother was very concerned which is what prompted them to bring them in today. For the beginning of the interview, patient states that she would not talk unless her mother was a round. We did try to contact the mother with over 5 phone calls and I then walked outside twice looking for her car and her but she already left. Patient did then start to talk to me and states that she sees energies. She does not have any SI and is currently denying HI. Patient states that she has not been sleeping well otherwise. Her right hand has been bothering her after she punched the myers. She has been taking her lithium as prescribed. Denies any headache, fever, head injury, neck pain, changes in vision/speech/hearing, URI, sore throat, chest pain, palpitations, syncope, cough, shortness of breath, wheeze, dyspnea, abdominal pain, nausea/vomiting/diarrhea, urinary retention, dysuria, hematuria, loss of control of bowel or bladder, numbness/tingling, saddle anesthesia, muscle paralysis/weakness, or rash. Pt has previous visits for similar situations. - Related Data Allergies/Adverse Reactions: aripiprazole [From Abilify] Allergy (Verified 06/15/19 17:43) chlorpromazine [From Thorazine] Allergy (Verified 06/15/19 17:43) hydroxyzine [From Vistaril] Allergy (Verified 06/15/19 17:43) olanzapine [From Zyprexa] Allergy (Verified 06/15/19 17:43) quetiapine [From Seroquel] Allergy (Verified 06/15/19 17:43) latex Adverse Reaction (Verified 06/15/19 17:43) Pruritis Past Medical History - General Information source: Patient, Parent - Social History Smoking Status: Current Every Day Smoker Chew tobacco use (# tins/day): No Frequency of alcohol use: None Drug Abuse: None Family History: Reviewed & Not Pertinent Patient has suicidal ideation: Yes Patient has homicidal ideation: Yes Renal/ Medical History: Denies: Hx Peritoneal Dialysis Psychiatric Medical History: Reports: Hx Anxiety, Hx Bipolar Disorder, Hx Depression, Hx Post Traumatic Stress Disorder, Hx Schizoaffective Disorder, Hx Schizophrenia - schizoaffective, ptsd - Immunizations Hx Diphtheria, Pertussis, Tetanus Vaccination: Yes Review of Systems - Review of Systems -: Yes All other systems reviewed and negative Physical Exam - Vital signs Vitals: Temp Pulse Resp BP Pulse Ox 98.1 F 91 20 142/99 H 100 06/15/19 17:26 06/15/19 17:26 06/15/19 17:26 06/15/19 17:06/15/19 17:26 - Notes Notes: PHYSICAL EXAMINATION: GENERAL: Well-appearing, well-nourished and in no acute distress. Alert and oriented to person and place. Will answer questions grossly appropriately. HEAD: Atraumatic, normocephalic. EYES: Pupils equal round and reactive to light, extraocular movements intact, sclera anicteric, conjunctiva are normal. ENT: Nares patent and without discharge. oropharynx clear without exudates. No tonsilar hypertrophy or erythema. Moist mucous membranes. NECK: Normal range of motion, supple without lymphadenopathy LUNGS: Breath sounds clear to auscultation bilaterally and equal. No wheezes rales or rhonchi. HEART: Regular rate and rhythm without murmurs, rubs, gallops. ABDOMEN: Soft, nontender, nondistended abdomen. No guarding, no rebound. Normal bowel sounds present. No CVA tenderness bilaterally. Musculoskeletal: FROM to passive/active. Strength 5+/5. Mild tenderness over the right hand. n/v intact distal. Extremities: No cyanosis, clubbing, or edema b/l. Peripheral pulses 2+. Capillary refill less than 3 seconds. NEUROLOGICAL: Cranial nerves grossly intact. Normal speech, normal gait. Normal sensory, motor exams PSYCH: Patient does not make good eye contact, irritable affect and mood, hallucinating in the room and talking to people that are not there. SKIN: Warm, Dry, normal turgor, no rashes or lesions noted. Course - Re-evaluation Re-evalutation: 06/15/19 19:19 Patient is currently an afebrile, well-hydrated, 29-year-old female who presents with hallucinations and being aggressive. Vitals are currently acceptable. Patient has been semicooperative. I did note her having a discussion with somebody in the room that was not there. When I was in the room she did say that a girl spit on the floor right in front of her, but that was another hallucination of hers. She is very irritable. I did confirm with triage provider as well mother's comments. Pt also was claiming that we were intentionally her and her mother, but I explained that we have tried calling and I walked around the parking lot twice and she was not to be found. I did review this with Dr. Maravilla who agrees with 24 hour hold for [facility] tomorrow. Recommends B52 if needed. I will be checking labs including lithium level. Labs/XR's pending. We are still working on an EKG. I also just witnessed patient needing to be assisted by 2 nurses and security to change her clothes. She has continue to shows signs of hallucinating throughout her stay thus far. She did start yelling and getting aggressive during this time, but is now sitting in the chair. She is currently just tearful and very agitated. If she continues to act out we will consider B52, but as long as she is not causing any further issues we will continue to hold. 06/15/19 19:46 Pt continues to be very irritable non compliant and not listening to staff. She is still yelling in the room and won't allow our staff to obtain an EKG. I have given the patient multiple discussions but she is not willing to be cooperative and I will be ordering B52 as per earlier discussion with Dr. Maravilla but will decrease to 1mg of ativan due to opiods in the system. I did review her allergies and pt states that vistaril does not work, but she has taken benadryl before without any allergic reaction. Pt will be monitored thereafter. I was able to briefly speak with mother on the phone and she confirms the violence, o utbursts, hallucinations. 06/15/19 20:01 Transfer of care to Amie Guevara NP to finish medical clearance. - Vital Signs Vital signs: Temp Pulse Resp BP Pulse Ox 98.1 F 91 20 142/99 H 100 06/15/19 17:26 06/15/19 17:26 06/15/19 17:26 06/15/19 17:26 06/15/19 17:26 - Laboratory Result Diagrams: 06/15/19 18:59 06/15/19 18:59 Laboratory results interpreted by me: 06/15/19 06/15/19 06/15/19 18:04 18:59 18:59 Lymph % (Auto) 11.4 L Seg Neutrophils % 84.0 H Urine Urobilinogen 2.0 H Salicylates < 1.0 L Acetaminophen < 10 L [place] 0.4 L Discharge - Discharge Clinical Impression: Hallucinations, Aggression Condition: Stable Disposition: PSYCH HOSP/UNIT Referrals: JORGE MONTEIRO DO [Primary Care Provider] - Follow up as needed
[2019-06-15 19:10] LABS: ABSOLUTE LYMPHOCYTES (AUTO) 1.1 10^3/uL (0.5-4.7); ABSOLUTE MONOCYTES (AUTO) 0.4 10^3/uL (0.1-1.4); ABSOLUTE NEUT (AUTO) 8.1 10^3/uL (1.7-8.2); EOSINOPHILS % (AUTO) 0.1 % (0-6); HEMOGLOBIN 14.4 g/dL (12.0-15.5); LYMPHOCYTES % (AUTO) 11.4 % (13-45); MEAN CORPUSCULAR HEMOGLOBIN 31.7 pg (27.0-33.4); MEAN CORPUSCULAR HGB CONC 34.2 g/dL (32.0-36.0); MEAN CORPUSCULAR VOLUME 93 fl (80-97); MONOCYTES % (AUTO) 4.5 % (3-13); PLATELET COUNT 162 10^3/uL (150-450); RED BLOOD COUNT 4.53 10^6/uL (3.72-5.28); RED CELL DISTRIBUTION WIDTH 13.7 % (11.5-14.0); TOTAL CELLS COUNTED % (AUTO) 100 %; WHITE BLOOD COUNT 9.7 10^3/uL (4.0-10.5)
--- NOTE | 2019-06-15 19:11 | ER Document Report ---
Doctor's Note Notes: 06/15/19 19:09 Patient is being held on a 24-hour psych hold for full psychiatric evaluation. Briefly she is a 29-year-old female who is actively having hallucinations here in the ED, accusing another female being in the room who was not there. Patient only somewhat compliant with medical evaluation. Per family (mother and sister, the patient has been more agitated at home and hallucinating. Has known history of bipolar and PTSD and neck disorder. Patient reports being compliant with her lithium.
[2019-06-15 19:31] LABS: ALBUMIN 4.6 g/dL (3.5-5.0); ALKALINE PHOSPHATASE 80 U/L (38-126); ANION GAP 11 (5-19); ASPARTATE AMINO TRANSFERASE 24 U/L (14-36); BILIRUBIN,DIRECT 0.1 mg/dL (0.0-0.4); BILIRUBIN,TOTAL 0.4 mg/dL (0.2-1.3); BLOOD UREA NITROGEN 11 mg/dL (7-20); CALCIUM 9.6 mg/dL (8.4-10.2); CARBON DIOXIDE 23 mmol/L (22-30); CHLORIDE 104 mmol/L (98-107); GLUCOSE 86 mg/dL (75-110); LITHIUM 0.4 mEq/L (0.6-1.2); POTASSIUM 3.8 mmol/L (3.6-5.0); TOTAL PROTEIN 7.5 g/dL (6.3-8.2)
[2019-06-15 19:34] LABS: ACETAMINOPHEN < 10 ug/mL (10-30); ALCOHOL < 10 mg/dL (NONE DETECTED); SALICYLATE < 1.0 mg/dL (2.0-20.0)
[2019-06-15] MEDS ORDERED: HALOPERIDOL LACTATE INJ 5 MG/1 ML VIAL IM ONE (19:52)
[2019-06-15] MEDS ORDERED: DIPHENHYDRAMINE HCL 50 MG/ML VIAL IM ONE (19:52)
[2019-06-15] MEDS ORDERED: LORAZEPAM INJ 2 MG/1 ML VIAL IM ONE (19:52)
--- NOTE | 2019-06-15 20:06 | RADIOLOGY REPORT (SQ) ---
EXAM DESCRIPTION: HAND RIGHT 3 VIEWS COMPLETED DATE/TIME: 06/15/2019 7:42 pm REASON FOR STUDY: pain COMPARISON: None. EXAM PARAMETERS: NUMBER OF VIEWS: Three views. TECHNIQUE: AP, lateral and oblique radiographic images acquired of the right hand. LIMITATIONS: None. FINDINGS: MINERALIZATION: Normal. BONES: No acute fracture or dislocation. No worrisome bone lesions. JOINTS: No effusion. SOFT TISSUES: No significant soft tissue swelling. No radiopaque foreign body. OTHER: No other significant finding. IMPRESSION: NO FRACTURE. TECHNICAL DOCUMENTATION: JOB ID: [id number] [id number] 2010 [employer]- All Rights Reserved Reading location - IP/workstation name: [email or web address]
--- NOTE | 2019-06-15 20:24 | RADIOLOGY REPORT (SQ) ---
EXAM DESCRIPTION: [facility]Lex: XR LUMBAR SPINE 2-3 VIEWS Views: 2 CLINICAL HISTORY: 29 years Female, pain COMPARISON: None. FINDINGS: Alignment is normal. No subluxation or significant loss of intervertebral disc height or vertebral body height. No evidence for acute fracture. No focal bone lesions. IMPRESSION: 1. Normal lumbar spine.
--- NOTE | 2019-06-15 22:46 | EKG REPORT ---
SEVERITY:- NORMAL ECG - SINUS RHYTHM : Confirmed by: Oleksandr Oconnell MD 15-Jun-2019 22:45:36
[2019-06-16] MEDS ORDERED: ACETAMINOPHEN 325 MG TABLET PO ONE (09:03)
[2019-06-16] MEDS ORDERED: BENZTROPINE MESYLATE 1 MG TABLET PO SCH (10:29)
[2019-06-16] MEDS ORDERED: LITHIUM CARBONATE 300 MG CAPSULE PO SCH (10:29)
[2019-06-16] MEDS ORDERED: HALOPERIDOL 5 MG TABLET PO SCH (10:29)
--- NOTE | 2019-06-16 10:33 | PSYCHOLOGICAL NOTE ---
Psych Note - Psych Note Date seen by psych provider: 06/16/19 Time seen by psych provider: 08:25 Psych Note: Reason For Consult: Aggression Consent Permissions: Patient refuses to engage with clinician stating that her back is in pain. Any question asked of the patient she responds with her own question "has my mother called?" When it is addressed that at this time clinician does not know if the patient's mother has called she told clinician to find out rolled over and refused to further engage. Health team contacted patient's mother. Please see mental health note. Diagnosis: Schizoaffective bipolar type per history Medication recommendations per [facility]'s contracted psychiatrist Dr. Diana HOWELL are as follows [place] 300 mg twice daily Haldol 5 mg twice daily Cogentin 1 mg daily Impression\\plan: Patient is recommended for IVC petition for overnight mental health observation. Patient is resenting very irritable and reportedly has been very aggressive in her home. Patient has been seen in the past by this clinician and department; this is not patient's baseline presentation. Medication recommendations have been provided; patient will be re-evaluated. Dr. Moya was consulted to care management of this patient; attending physicians in agreement with recommendations and disposition.L
--- NOTE | 2019-06-16 16:21 | ER Document Report ---
Doctor's Note Notes: 06/16/19 15:55 evaluated patient. Vitals stable. Patient is being transferred to psychiatric facility. Patient currently tearful. Patient complaining of continued back pain. Patient was offered Tylenol and refused earlier. Patient ambulating without difficulty.
[2019-06-16 16:48] VITALS: BP 115/80
== END 2019-06-16 16:30 ==
LOC: ER 17:21
DX: R44.1 Visual hallucinations (principal); R44.0 Auditory hallucinations; R45.6 Violent behavior; R45.4 Irritability and anger; R45.1 Restlessness and agitation; M54.9 Dorsalgia, unspecified; F31.9 Bipolar disorder, unspecified; Z79.899 Other long term (current) drug therapy; R45.850 Homicidal ideations; R45.851 Suicidal ideations; F17.200 Nicotine dependence, unspecified, uncomplicated; Z88.8 Allergy status to other drugs, medicaments and biological substances; Z75.1 Person awaiting admission to adequate facility elsewhere
CPT/HCPCS: 93005; 99285; 96372; 36415; 80307 ×4; 80178; 84703; 85025; 80053; 81001; 73130; 72100; 93010; J3490 ×3; J1200; J1630; J2060